=== PATIENT | female | born 1965 | race Two or more races ===

== ENCOUNTER 2016-11-24 13:55 | Inpatient (IN) | payer MEDICAID ==
[~2016-11-24] VITALS: Ht 157.5 cm; Wt 74.4 kg
[2016-11-24 14:43] LABS: Basophils # (auto) 0 uL; Basophils % (auto) 0.3 % (0.0-2.0); DEFINITIVE VIEW TRANSMISSION; Eosinophils # (auto) 0.1 uL; Eosinophils % (auto) 1.1 % (0.0-7.0); Hematocrit 41.9 % (36.0-46.0); Hemoglobin 13.6 g/dL (12.2-16.2); Lymphocytes # (auto) 0.8 uL; Lymphocytes % (auto) 11.1 % (10.0-50.0); Mean Corpuscular Hemoglobin 25.2 pg (28.0-32.0); Mean Corpuscular Hgb Conc. 32.5 g/dL (32.0-36.0); Mean Corpuscular Volume 77.5 fL (80.0-100.0); Mean Platelet Volume 8.7 fL (7.4-10.4); Monocytes # (auto) 0.4 uL; Monocytes % (auto) 6.5 % (0.0-12.0); Neutrophils # (auto) 5.6 uL; Platelet Count (auto) 261 10^3/uL (140-450); White Blood Cell 6.9 10^3/uL (4.4-10.8)
[2016-11-24 15:10] LABS: Potassium 3.9 mmol/L (3.5-5.1)
[2016-11-24 15:14] LABS: BUN/Creatinine Ratio 13.2; Calcium 8.9 mg/dL (8.5-10.1)
[2016-11-24 15:17] LABS: Bilirubin, Total 0.4 mg/dL (0.2-1.0); Total Protein 8.6 g/dL (6.4-8.2)
[2016-11-24] MEDS ORDERED: ONDANSETRON HCL 4 MG/2 ML VIAL IV ONE (15:45)
[2016-11-24] MEDS ORDERED: HYDROmorphone HCL 2 MG/ML VL IV ONE (15:45)
[2016-11-24] MEDS ORDERED: cloNIDine HCL 0.1 MG TAB PO ONE (15:45)
[2016-11-24 16:31] LABS: Urine Bilirubin Negative (Negative); Urine Blood Negative /uL (Negative); Urine Color Yellow (Yellow); Urine Glucose Normal (Normal); Urine Mucus FEW (None Seen); Urine Nitrite Negative (Negative); Urine RBC 2 /hpf (0 - 4); Urine Squamous Epithelial Cell MOD /hpf (<5); Urine Urobilinogen Normal (Negative); Urine pH 5.5 (5.0-8.0)
[2016-11-24 16:32] LABS: Urine Ketone 1+ (Negative)
[2016-11-24] MEDS ORDERED: DILTIAZEM HCL 25 MG/5 ML VIAL IV ONE (17:00)
[2016-11-24] MEDS ORDERED: cefTRIAXone 1GM/50ML D5W 50 ML IV ONE (17:30)
[2016-11-24] MEDS ORDERED: HYDROcodone-ACET 5/325MG TAB PO PRN (17:45)
[2016-11-24] MEDS ORDERED: TEMAZEPAM 15 MG CAP PO PRN (17:45)
[2016-11-24] MEDS ORDERED: LABETALOL HCL 5 MG/ML 4ML SYRINGE IV PRN ×3 (17:45)
[2016-11-24] MEDS ORDERED: PROMETHAZINE HCL 25 MG/ML 1ML IV PRN (17:45)
[2016-11-24] MEDS ORDERED: LABETALOL HCL 5 MG/ML 4ML SYRINGE IV ONE (17:45)
[2016-11-24] MEDS ORDERED: NITROGLYCERIN 0.4 MG SL TAB SL PRN (17:45)
[2016-11-24] MEDS ORDERED: MORPHINE SULF INJ 2 MG/ML SYRINGE 1ML IV PRN (17:45)
[2016-11-24] MEDS ORDERED: LACTULOSE 20Gm/30ML SOLN PO PRN (17:45)
[2016-11-24] MEDS: NITROGLYCERIN 0.2MG/HR TOPICAL PATCH TD SCH (18:05)
[2016-11-24 18:41] LABS: Temperature: 21.9 C (20.0-25.0)
[2016-11-24] MEDS: MORPHINE SULF INJ 2 MG/ML SYRINGE 1ML IV PRN (18:42)
[2016-11-24] MEDS: ACETAMINOPHEN 500 MG TAB PO PRN (19:27)
[2016-11-24 20:25] VITALS: BP 154/104
[2016-11-24 20:58] LABS: INR 1.04 (0.9-1.15); Prothrombin Time 10.7 sec (9.37-12.3)
[2016-11-24 22:02] VITALS: BP 154/104
[2016-11-24] MEDS: SODIUM CHLOR 0.9% PF (SALINE LOCK) 10ML VIAL IV SCH (22:02)
[2016-11-24] MEDS: METOPROLOL TARTRATE 25 MG TAB PO SCH (22:03)
[2016-11-24] MEDS: ATORVASTATIN 20 MG TAB PO SCH (22:04)
[2016-11-25] MEDS: MORPHINE SULF INJ 2 MG/ML SYRINGE 1ML IV PRN ×5 (00:19→20:29)
[2016-11-25 05:19] VITALS: BP 127/84
[2016-11-25] MEDS: SODIUM CHLOR 0.9% PF (SALINE LOCK) 10ML VIAL IV SCH ×3 (05:29→22:09)
[2016-11-25 06:11] LABS: Cholesterol 226 mg/dL (<200); HDL Cholesterol 52 mg/dL (40-59); LDL Cholesterol 136 mg/dL (<100); Triglycerides 133 mg/dL (<150)
[2016-11-25] MEDS: ACETAMINOPHEN 500 MG TAB PO PRN (07:46)
[2016-11-25 09:00] VITALS: BP 139/68
[2016-11-25] MEDS: cefTRIAXone 1GM/50ML D5W 50 ML IV SCH (09:00)
[2016-11-25] MEDS: ENALAPRIL MALEATE 2.5 MG TAB PO SCH (09:33)
[2016-11-25] MEDS: METOPROLOL TARTRATE 25 MG TAB PO SCH ×2 (09:33→22:09)
[2016-11-25] MEDS: ASPirin 81 mg TAB PO SCH (09:34)
[2016-11-25] MEDS: NITROGLYCERIN 0.2MG/HR TOPICAL PATCH TD SCH (09:35)
[2016-11-25 13:00] VITALS: BP 143/93
[2016-11-25] MEDS ORDERED: LISI40TA PO (13:15)
[2016-11-25] MEDS: LORazepam 0.5 MG TAB PO PRN (13:54)
[2016-11-25] MEDS ORDERED: BUTALBITAL-ASPIRIN-CAFF(FioriNAL) CAP PO PRN (16:15)
[2016-11-25 16:42] VITALS: BP 133/81
[2016-11-25] MEDS: METHOCARBAMOL 500 MG TAB PO SCH ×2 (17:58→22:12)
[2016-11-25] MEDS: SODIUM CHLORIDE 0.9% 1,000 ML IV SCH (20:35)
[2016-11-25 22:00] VITALS: BP 140/84
[2016-11-25] MEDS: ATORVASTATIN 20 MG TAB PO SCH (22:10)
[2016-11-25] MEDS: METOCLOPRAMIDE HCL 10 MG TAB PO SCH (22:12)
[2016-11-25] MEDS: TOPIRAMATE 25 MG TAB PO SCH (22:13)
[2016-11-26 00:19] VITALS: BP 140/84
[2016-11-26] MEDS: ACETAMINOPHEN 500 MG TAB PO PRN (04:26)
[2016-11-26] MEDS: LORazepam 0.5 MG TAB PO PRN (04:26)
[2016-11-26 04:58] VITALS: BP 150/92
[2016-11-26] MEDS: SODIUM CHLORIDE 0.9% 1,000 ML IV SCH (05:15)
[2016-11-26] MEDS: SODIUM CHLOR 0.9% PF (SALINE LOCK) 10ML VIAL IV SCH ×2 (05:39→13:30)
[2016-11-26] MEDS: METOCLOPRAMIDE HCL 10 MG TAB PO SCH ×2 (05:40→13:43)
[2016-11-26] MEDS: METHOCARBAMOL 500 MG TAB PO SCH ×2 (05:41→12:09)
[2016-11-26 09:17] VITALS: BP 144/94
[2016-11-26] MEDS: METOPROLOL TARTRATE 25 MG TAB PO SCH (09:26)
[2016-11-26] MEDS: ENALAPRIL MALEATE 2.5 MG TAB PO SCH (09:27)
[2016-11-26] MEDS: ASPirin 81 mg TAB PO SCH (09:27)
[2016-11-26] MEDS: TOPIRAMATE 25 MG TAB PO SCH (09:27)
[2016-11-26] MEDS: NITROGLYCERIN 0.2MG/HR TOPICAL PATCH TD SCH (09:28)
[2016-11-26] MEDS: cefTRIAXone 1GM/50ML D5W 50 ML IV SCH (09:39)
[2016-11-26] MEDS ORDERED: DEXAMETHASONE INJECTION 10 MG in D5W 5% 50 ML IV SCH (10:00)
[2016-11-26] MEDS: MORPHINE SULF INJ 2 MG/ML SYRINGE 1ML IV PRN (10:02)
[2016-11-26 13:45] VITALS: BP 161/78
[2016-11-26 14:14] VITALS: BP 149/95
== END 2016-11-26 15:04 | disposition home or self-care (01) | DRG 203 ==
LOC: ER 14:02 → TELE 14:03 → TELE-CENTR 19:44 → CENTRAL 11-26 13:17 → TELE-CENTR 11-26 13:56
PROVIDERS: ADMIT Internal Medicine; ATTEND Internal Medicine
PROC: 5A09357 Assistance with Respiratory Ventilation, Less than 24 Consecutive Hours, Continuous Positive Airway Pressure (ICD-10-PCS; principal; 2016-11-25)
DX: R07.9 Chest pain, unspecified (principal); N39.0 Urinary tract infection, site not specified; I16.1 Hypertensive emergency; G43.909 Migraine, unspecified, not intractable, without status migrainosus; I70.0 Atherosclerosis of aorta; I10 Essential (primary) hypertension; Z90.721 Acquired absence of ovaries, unilateral; Z98.890 Other specified postprocedural states; Z82.49 Family history of ischemic heart disease and other diseases of the circulatory system; Z88.1 Allergy status to other antibiotic agents; Z79.899 Other long term (current) drug therapy; Z86.011 Personal history of benign neoplasm of the brain
CPT/HCPCS: 36415; 70450; 70551; 71020; 80053; 80061; 81001; 82550; 82607; 82746; 84443; 84484; 85025; 85049; 85379; 85610; 85652; 86141; 87086; 93005; 93971; 94660; 96374; 96375; 99291; G0434; J0696; J1100; J2405; J3490; J7060

== ENCOUNTER 2019-05-07 17:38 | Inpatient (IN) | payer MEDICAID | END 2019-05-10 14:00 | disposition home or self-care (01) | LOC: ER 17:38 → OVERFLOW 17:39 → TELE 21:28 → TELE-WESTW 22:58 | DX: I12.9 Hypertensive chronic kidney disease with stage 1 through stage 4 chronic kidney disease, or unspecified chronic kidney disease (principal); N17.9 Acute kidney failure, unspecified; N18.3 Chronic kidney disease, stage 3 (moderate); I16.1 Hypertensive emergency; R07.9 Chest pain, unspecified; D49.7 Neoplasm of unspecified behavior of endocrine glands and other parts of nervous system ==

== ENCOUNTER 2019-11-08 10:47 | Emergency (ER) | payer MEDICAID ==
[~2019-11-08] VITALS: Ht 157.5 cm; Wt 72.6 kg
[~2019-11-08 10:47] MED LIST: AML5T PO; ASPI-404 PO; BACL10TA PO; CLO01T PO; FLUT1SPR5; GEMF600T7 PO; LISI-646 PO
[2019-11-08] MEDS ORDERED: hydrALAZINE HCL 20 MG/ML VL IV ONE (11:15)
[2019-11-08 11:36] LABS: Urine Bacteria FEW /hpf (None Seen); Urine Blood Negative /uL (Negative); Urine Hyaline Cast FEW /lpf (0 - 2); Urine Mucus FEW (None Seen); Urine Specific Gravity 1.017 (1.001-1.035); Urine WBC 1 /hpf (0 - 5)
[2019-11-08 11:50] LABS: Basophils # (auto) 0 uL; Eosinophils # (auto) 0.2 uL; Lymphocytes # (auto) 2.5 uL
[2019-11-08 11:53] LABS: Basophils % (auto) 0.5 % (0.0-2.0); Eosinophils % (auto) 2.3 % (0.0-7.0); Hematocrit 44.5 % (36.0-46.0); Hemoglobin 14.2 g/dL (12.2-16.2); Lymphocytes % (auto) 32.7 % (10.0-50.0); Mean Corpuscular Hemoglobin 25.1 pg (28.0-32.0); Mean Corpuscular Hgb Conc. 31.9 g/dL (32.0-36.0); Mean Corpuscular Volume 78.9 fL (80.0-100.0); Monocytes # (auto) 0.5 uL; Monocytes % (auto) 6.1 % (0.0-12.0); Neutrophils # (auto) 4.4 uL; Neutrophils % (auto) 58.4 % (37.0-80.0); Platelet Count (auto) 325 10^3/uL (140-450); Red Blood Cells 5.64 10^6/uL (4.0-5.20); Red Cell Distribution Width 14.8 % (11.8-14.3); White Blood Cell 7.6 10^3/uL (4.4-10.8)
[2019-11-08 11:57] LABS: Potassium 3.9 mmol/L (3.5-5.1)
[2019-11-08 12:04] LABS: BUN/Creatinine Ratio 20.4; Bilirubin, Total 0.3 mg/dL (0.2-1.0); Calcium 9.7 mg/dL (8.5-10.1); Total Protein 8.8 g/dL (6.4-8.2)
[2019-11-08 13:54] VITALS: BP 152/90
== END 2019-11-08 14:43 | disposition home or self-care (01) ==
LOC: ER 10:47
DX: I10 Essential (primary) hypertension (principal); D33.2 Benign neoplasm of brain, unspecified; E78.00 Pure hypercholesterolemia, unspecified
CPT/HCPCS: 36415; 70450; 80053; 81001; 85025; 93005

== ENCOUNTER 2020-01-23 18:48 | Emergency (ER) | payer MEDICAID ==
[~2020-01-23] VITALS: Ht 157.5 cm; Wt 70.3 kg
[2020-01-23] MEDS ORDERED: cloNIDine HCL 0.1 MG TAB PO ONE (19:15)
[2020-01-23 19:39] LABS: Eosinophils # (auto) 0.1 10 ^3/uL (0-0.8); Monocytes # (auto) 0.4 10 ^3/uL (0-1.3)
[2020-01-23 19:40] LABS: Basophils # (auto) 0 10 ^3/uL (0-0.2); Basophils % (auto) 0.6 % (0.0-2.0); Eosinophils % (auto) 1.9 % (0.0-7.0); Hematocrit 38.9 % (36.0-46.0); Hemoglobin 12.6 g/dL (12.2-16.2); Lymphocytes % (auto) 30.5 % (10.0-50.0); Mean Corpuscular Hemoglobin 25.4 pg (28.0-32.0); Mean Corpuscular Hgb Conc. 32.4 g/dL (32.0-36.0); Mean Corpuscular Volume 78.4 fL (80.0-100.0); Monocytes % (auto) 5.9 % (0.0-12.0); Neutrophils % (auto) 61.1 % (37.0-80.0); Nucleated Red Blood Cells % 0.1 %; Platelet Count (auto) 264 10^3/uL (140-450); Red Blood Cells 4.97 10^6/uL (4.0-5.20); White Blood Cell 6.5 10^3/uL (4.4-10.8)
[2020-01-23 19:56] LABS: Alanine Aminotransferase 18 U/L (13-56); Albumin 3.7 g/dL (3.4-5.0); Anion Gap 6 (5-15); Aspartate Aminotransferase 15 U/L (15-37); Blood Urea Nitrogen 22 mg/dL (7-18); Calcium 8.7 mg/dL (8.5-10.1); Carbon Dioxide 27 mmol/L (21-32); Chloride 108 mmol/L (98-107); Glucose 114 mg/dL (74-106); Potassium 4.1 mmol/L (3.5-5.1); Sodium 141 mmol/L (136-145)
[2020-01-23 20:01] LABS: Alkaline Phosphatase 98 U/L (45-117); BUN/Creatinine Ratio 15.3; Bilirubin, Total 0.2 mg/dL (0.2-1.0); GFR African American 48 mL/min; GFR Non-African American 40 mL/min
[2020-01-23] MEDS ORDERED: hydrALAZINE HCL 20 MG/ML VL IV ONE (22:15)
[2020-01-23] MEDS ORDERED: ONDANSETRON HCL 4 MG/2 ML VIAL IV ONE (22:15)
[2020-01-24 00:42] VITALS: BP 146/88
== END 2020-01-24 00:37 | disposition home or self-care (01) ==
LOC: ER 18:48
DX: I16.0 Hypertensive urgency (principal); I10 Essential (primary) hypertension; R51 Headache; E78.5 Hyperlipidemia, unspecified; Z90.710 Acquired absence of both cervix and uterus; Z87.820 Personal history of traumatic brain injury; Z88.1 Allergy status to other antibiotic agents; Z79.899 Other long term (current) drug therapy
CPT/HCPCS: 36415; 80053; 84484; 85025; 93005; 96374; 96375; 99284; J0360; J2405

== ENCOUNTER 2020-05-06 13:48 | Inpatient (IN) | payer MEDICAID ==
[~2020-05-06] VITALS: Ht 157.5 cm; Wt 73.0 kg
[2020-05-06] MEDS ORDERED: cloNIDine HCL 0.1 MG TAB PO ONE (14:15)
[2020-05-06 14:56] LABS: Eosinophils # (auto) 0.1 10 ^3/uL (0-0.8); Monocytes # (auto) 0.3 10 ^3/uL (0-1.3); Monocytes % (auto) 4.9 % (0.0-12.0); Neutrophils # (auto) 4.6 10 ^3/uL (1.6-8.6); White Blood Cell 6.5 10^3/uL (4.4-10.8)
[2020-05-06 15:00] LABS: Basophils # (auto) 0.1 10 ^3/uL (0-0.2); Basophils % (auto) 0.9 % (0.0-2.0); Eosinophils % (auto) 1.3 % (0.0-7.0); Hematocrit 40.4 % (36.0-46.0); Hemoglobin 13.1 g/dL (12.2-16.2); Lymphocytes # (auto) 1.4 10 ^3/uL (0.4-5.4); Lymphocytes % (auto) 21.8 % (10.0-50.0); Mean Corpuscular Hemoglobin 25.3 pg (28.0-32.0); Mean Corpuscular Hgb Conc. 32.6 g/dL (32.0-36.0); Mean Corpuscular Volume 77.8 fL (80.0-100.0); Neutrophils % (auto) 71.1 % (37.0-80.0); Nucleated Red Blood Cells % 0.1 %; Platelet Count (auto) 294 10^3/uL (140-450); Red Blood Cells 5.19 10^6/uL (4.0-5.20); Red Cell Distribution Width 15.1 % (11.8-14.3)
[2020-05-06] MEDS ORDERED: ASPirin 81 mg TAB PO ONE (15:00)
[2020-05-06] MEDS ORDERED: ONDANSETRON HCL 4 MG/2 ML VIAL IV ONE (15:00)
[2020-05-06] MEDS ORDERED: ACETAMINOPHEN 325 MG TAB PO ONE (15:00)
[2020-05-06 15:06] LABS: Albumin 3.6 g/dL (3.4-5.0); Anion Gap 8 (5-15); BUN/Creatinine Ratio 16.7; Blood Urea Nitrogen 22 mg/dL (7-18); Carbon Dioxide 24 mmol/L (21-32); Chloride 107 mmol/L (98-107); GFR African American 54 mL/min; GFR Non-African American 44 mL/min; Glucose 111 mg/dL (74-106); Potassium 3.7 mmol/L (3.5-5.1); Sodium 139 mmol/L (136-145)
[2020-05-06 15:08] LABS: Alanine Aminotransferase 18 U/L (13-56); Alkaline Phosphatase 102 U/L (45-117); Aspartate Aminotransferase 14 U/L (15-37); Bilirubin, Total 0.3 mg/dL (0.2-1.0); Total Protein 8.1 g/dL (6.4-8.2)
[2020-05-06 15:53] LABS: INR 0.97 (0.9-1.15); Partial Thromboplastin Time 30.2 sec (23.64-32.05)
[2020-05-06] MEDS ORDERED: FLUTICASONE PROP NASAL SPR 0.05 % (50MCG) 16GM PRN (18:45)
[2020-05-06] MEDS ORDERED: LACTATED RINGER'S 1,000 ML IV ONE (18:45)
[2020-05-06] MEDS ORDERED: BACLOFEN 10 MG TAB PO PRN (18:45)
[2020-05-06] MEDS ORDERED: cloNIDine HCL 0.1 MG TAB PO PRN (18:45)
[2020-05-06] MEDS ORDERED: MORPHINE SULF INJ 2 MG/ML SYRINGE 1ML IV PRN (18:45)
[2020-05-06] MEDS ORDERED: NITROGLYCERIN 0.4 MG SL TAB SL PRN ×2 (18:45→23:45)
[2020-05-06] MEDS ORDERED: ALUM & MAG HYDROX-SIMETH LIQ(MAALOX) 30 ML PO PRN (18:45)
[2020-05-06 20:05] LABS: Cholesterol 279 mg/dL (< 200); Triglycerides 328 mg/dL (< 150)
[2020-05-06 20:07] LABS: HDL Cholesterol 42 mg/dL (40-59); LDL Cholesterol 162 mg/dL (< 100)
[2020-05-06] MEDS: SOD CHL 0.45% 1,000 ML IV SCH (20:53)
[2020-05-06 22:20] VITALS: BP 154/98
[2020-05-06] MEDS: GEMFIBROZIL 600 MG TAB PO SCH (23:04)
[2020-05-06] MEDS: HYDROcodone-ACET 5/325MG TAB PO PRN (23:51)
[2020-05-06] MEDS: LORazepam 0.5 MG TAB PO PRN (23:52)
[2020-05-07 05:00] VITALS: BP 148/86
[2020-05-07 06:10] LABS: Basophils # (auto) 0 10 ^3/uL (0-0.2); Eosinophils # (auto) 0.1 10 ^3/uL (0-0.8); Hematocrit 36.1 % (36.0-46.0); Hemoglobin 11.6 g/dL (12.2-16.2); Nucleated Red Blood Cells % 0.1 %; White Blood Cell 4.7 10^3/uL (4.4-10.8)
[2020-05-07 06:13] LABS: Basophils % (auto) 0.8 % (0.0-2.0); Eosinophils % (auto) 2.8 % (0.0-7.0); Lymphocytes % (auto) 42.6 % (10.0-50.0); Mean Corpuscular Hemoglobin 25.3 pg (28.0-32.0); Mean Corpuscular Hgb Conc. 32.3 g/dL (32.0-36.0); Mean Corpuscular Volume 78.5 fL (80.0-100.0); Monocytes # (auto) 0.4 10 ^3/uL (0-1.3); Monocytes % (auto) 9.3 % (0.0-12.0); Neutrophils # (auto) 2.1 10 ^3/uL (1.6-8.6); Neutrophils % (auto) 44.5 % (37.0-80.0); Platelet Count (auto) 255 10^3/uL (140-450); Red Blood Cells 4.59 10^6/uL (4.0-5.20); Red Cell Distribution Width 15.5 % (11.8-14.3)
[2020-05-07 06:25] LABS: INR 0.99 (0.9-1.15); Partial Thromboplastin Time 29.6 sec (23.64-32.05)
[2020-05-07 06:30] LABS: Albumin 3.1 g/dL (3.4-5.0); Calcium 8.8 mg/dL (8.5-10.1); Magnesium 2.7 mg/dL (1.6-2.6); Potassium 3.9 mmol/L (3.5-5.1)
[2020-05-07 06:35] LABS: BUN/Creatinine Ratio 18.5; Bilirubin, Total 0.3 mg/dL (0.2-1.0); Phosphorus 4.5 mg/dL (2.5-4.90)
[2020-05-07 09:00] VITALS: BP 139/79
[2020-05-07] MEDS ORDERED: ENOXAPARIN SOD 40 MG/0.4 ML SYRINGE SC SCH (10:00)
[2020-05-07] MEDS ORDERED: CLOPIDOGREL BISULFATE 75 MG TAB PO SCH (10:00)
[2020-05-07] MEDS ORDERED: LISINOPRIL 20 MG TAB PO SCH (10:00)
[2020-05-07] MEDS ORDERED: amLODIPine BESYLATE 5 MG TAB PO SCH (10:00)
[2020-05-07] MEDS: ASPirin-EC 81 mg tab PO SCH (10:24)
[2020-05-07] MEDS: GEMFIBROZIL 600 MG TAB PO SCH ×2 (10:24→22:38)
[2020-05-07] MEDS ORDERED: ISOSORBIDE MONONITRATE ER 60 MG TAB PO ONE (11:00)
[2020-05-07] MEDS ORDERED: METOPROLOL TARTRATE 50 MG TAB PO ONE (11:00)
[2020-05-07] MEDS: SOD CHL 0.45% 1,000 ML IV SCH (11:16)
[2020-05-07] MEDS: HYDROcodone-ACET 5/325MG TAB PO PRN ×2 (11:39→20:22)
[2020-05-07 13:00] VITALS: BP 166/100
[2020-05-07] MEDS ORDERED: amLODIPine BESYLATE 5 MG TAB PO ONE (13:15)
[2020-05-07] MEDS: ONDANSETRON HCL 4 MG/2 ML VIAL IV PRN ×2 (14:46→20:22)
[2020-05-07] MEDS ORDERED: VERAPAMIL HCL 120 mg ER tab PO ONE (15:45)
[2020-05-07 16:49] VITALS: BP 142/88
[2020-05-07 21:50] VITALS: BP 156/82
[2020-05-07] MEDS: VERAPAMIL HCL 40 MG TAB PO SCH (22:00)
[2020-05-07] MEDS: METOPROLOL TARTRATE 50 MG TAB PO SCH (22:38)
--- NOTE | 2020-05-07 22:59 | NUR ---
ALONDRA CARDIOPULMONARY TECHNICIAN NOTIFIED BECAUSE NEW MEDICATION FOR VERAPAMIL 80MG IS UNAVAILABLE. PT GIVEN LOPRESSOR AND LOPID ORDERED.
--- NOTE | 2020-05-08 | NUR ---
PT INFORMED RN THAT SHE HAS GOOGLED VERAPAMIL AND WILL NOT BE TAKING IT BECAUSE OF ITS SIDE EFFECTS.
[2020-05-08] MEDS: VERAPAMIL HCL 40 MG TAB PO SCH ×3 (00:09→22:00)
[2020-05-08] MEDS: HYDROcodone-ACET 5/325MG TAB PO PRN (00:40)
[2020-05-08] MEDS: LORazepam 0.5 MG TAB PO PRN (00:40)
[2020-05-08] MEDS: MORPHINE SULF INJ 2 MG/ML SYRINGE 1ML IV PRN ×3 (02:11→21:39)
[2020-05-08 05:00] VITALS: BP 128/71
[2020-05-08 07:17] LABS: Eosinophils # (auto) 0.2 10 ^3/uL (0-0.8); Lymphocytes # (auto) 2.2 10 ^3/uL (0.4-5.4); Monocytes # (auto) 0.5 10 ^3/uL (0-1.3); Platelet Count (auto) 260 10^3/uL (140-450); Red Cell Distribution Width 15.6 % (11.8-14.3)
[2020-05-08 07:24] LABS: Basophils # (auto) 0 10 ^3/uL (0-0.2); Basophils % (auto) 0.6 % (0.0-2.0); Eosinophils % (auto) 2.3 % (0.0-7.0); Hematocrit 35.4 % (36.0-46.0); Hemoglobin 11.3 g/dL (12.2-16.2); Lymphocytes % (auto) 33.4 % (10.0-50.0); Mean Corpuscular Hemoglobin 25.4 pg (28.0-32.0); Mean Corpuscular Volume 79.4 fL (80.0-100.0); Monocytes % (auto) 7.4 % (0.0-12.0); Neutrophils # (auto) 3.8 10 ^3/uL (1.6-8.6); Neutrophils % (auto) 56.3 % (37.0-80.0); Nucleated Red Blood Cells % 0.1 %; Red Blood Cells 4.46 10^6/uL (4.0-5.20); White Blood Cell 6.7 10^3/uL (4.4-10.8)
[2020-05-08 07:35] LABS: Potassium 4.1 mmol/L (3.5-5.1)
[2020-05-08 07:40] LABS: BUN/Creatinine Ratio 23.4; Calcium 8.5 mg/dL (8.5-10.1)
[2020-05-08] MEDS: ASPirin-EC 81 mg tab PO SCH (09:00)
[2020-05-08] MEDS: METOPROLOL TARTRATE 50 MG TAB PO SCH ×2 (09:01→22:04)
[2020-05-08] MEDS: GEMFIBROZIL 600 MG TAB PO SCH ×2 (09:01→22:04)
[2020-05-08] MEDS: ISOSORBIDE MONONITRATE ER 60 MG TAB PO SCH (09:02)
[2020-05-08 09:07] VITALS: BP 151/88
[2020-05-08 09:13] LABS: Urine Bacteria FEW /hpf (None Seen); Urine Blood Negative /uL (Negative); Urine Specific Gravity 1.019 (1.001-1.035); Urine WBC 37 /hpf (0 - 5)
[2020-05-08] MEDS ORDERED: VERAPAMIL HCL 120 mg ER tab PO SCH (10:00)
[2020-05-08] MEDS ORDERED: amLODIPine BESYLATE 5 MG TAB PO SCH (10:00)
[2020-05-08] MEDS: LIDOCAINE 5% TOPICAL PATCH TOP SCH (11:15)
[2020-05-08] MEDS: DOCUSATE SOD 100 MG CAP PO PRN (11:15)
[2020-05-08] MEDS: ONDANSETRON HCL 4 MG/2 ML VIAL IV PRN ×2 (11:15→21:28)
[2020-05-08 13:00] VITALS: BP 164/93
[2020-05-08] MEDS: SPIRONOLACTONE 25 MG TAB PO SCH (13:25)
[2020-05-08] MEDS: dilTIAZem HCL 60 MG TAB PO SCH ×2 (13:28→22:03)
[2020-05-08 17:25] VITALS: BP 167/83
[2020-05-08] MEDS: TERAZOSIN HCL 5 MG CAP PO SCH (22:04)
[2020-05-08] MEDS: PANTOPRAZOLE 40 MG TAB PO SCH (22:04)
[2020-05-08 22:05] VITALS: BP 161/98
[2020-05-09] MEDS: HYDROcodone-ACET 5/325MG TAB PO PRN ×3 (00:02→21:40)
--- NOTE | 2020-05-09 01:55 | NUR ---
REASSESSMENT The patient reported that she is no longer experiencing a headache. Patient's blood pressure is 108/76. Will continue to monitor the patient's blood pressure. Patient still reports feeling nauseous. Will treat with PRN anti nausea medication.
[2020-05-09] MEDS: ONDANSETRON HCL 4 MG/2 ML VIAL IV PRN ×2 (01:57→21:35)
--- NOTE | 2020-05-09 02:27 | NUR ---
NAUSEA ASSESSMENT The patient's is currently resting in bed. Reports that she is no longer experiencing the nauseous. Will continue to monitor the patient's status.
[2020-05-09 05:09] VITALS: BP 92/55
[2020-05-09 05:41] LABS: Basophils # (auto) 0 10 ^3/uL (0-0.2); Basophils % (auto) 0.5 % (0.0-2.0); Eosinophils # (auto) 0.1 10 ^3/uL (0-0.8); Eosinophils % (auto) 2.1 % (0.0-7.0); White Blood Cell 6.6 10^3/uL (4.4-10.8)
[2020-05-09 05:44] LABS: Hematocrit 36.4 % (36.0-46.0); Hemoglobin 11.6 g/dL (12.2-16.2); Lymphocytes # (auto) 1.8 10 ^3/uL (0.4-5.4); Lymphocytes % (auto) 27.8 % (10.0-50.0); Mean Corpuscular Hemoglobin 25.3 pg (28.0-32.0); Mean Corpuscular Hgb Conc. 31.8 g/dL (32.0-36.0); Mean Corpuscular Volume 79.4 fL (80.0-100.0); Monocytes # (auto) 0.5 10 ^3/uL (0-1.3); Monocytes % (auto) 6.9 % (0.0-12.0); Neutrophils # (auto) 4.2 10 ^3/uL (1.6-8.6); Neutrophils % (auto) 62.7 % (37.0-80.0); Nucleated Red Blood Cells % 0.1 %; Platelet Count (auto) 267 10^3/uL (140-450); Red Blood Cells 4.58 10^6/uL (4.0-5.20); Red Cell Distribution Width 15.4 % (11.8-14.3)
[2020-05-09] MEDS: VERAPAMIL HCL 40 MG TAB PO SCH ×3 (06:00→22:00)
[2020-05-09] MEDS: dilTIAZem HCL 60 MG TAB PO SCH ×2 (06:00→14:04)
[2020-05-09 06:10] LABS: BUN/Creatinine Ratio 17.9; Calcium 8.5 mg/dL (8.5-10.1); Potassium 4.7 mmol/L (3.5-5.1)
--- NOTE | 2020-05-09 07:30 | NUR ---
RECEIVED REPORT FROM NIGHT NURSE. PATIENT RESTING IN BED, NO DISTRESS NOTED. PATIENT NPO FOR PROCEDURE. WILL CONTINUE TO MONITOR.
[2020-05-09 09:00] VITALS: BP 125/72
[2020-05-09] MEDS: METOPROLOL TARTRATE 50 MG TAB PO SCH ×2 (10:00→21:40)
[2020-05-09] MEDS: PANTOPRAZOLE 40 MG TAB PO SCH ×2 (10:00→21:37)
[2020-05-09] MEDS: SPIRONOLACTONE 25 MG TAB PO SCH (10:00)
[2020-05-09] MEDS: ISOSORBIDE MONONITRATE ER 60 MG TAB PO SCH (10:00)
[2020-05-09] MEDS: ASPirin-EC 81 mg tab PO SCH (10:00)
[2020-05-09] MEDS: GEMFIBROZIL 600 MG TAB PO SCH ×2 (10:00→21:37)
[2020-05-09] MEDS: LIDOCAINE 5% TOPICAL PATCH TOP SCH (10:00)
[2020-05-09] MEDS ORDERED: SODIUM CHLORIDE LOCK 10 ML ONE (10:08)
[2020-05-09] MEDS ORDERED: LIDOCAINE VISCOUS 2% 15ML UD ONE (10:09)
[2020-05-09] MEDS ORDERED: diphenhdrAMINE HCL 50 MG/1 ML VL ONE (10:09)
--- NOTE | 2020-05-09 10:10 | NUR ---
PATIENT BROUGHT DOWN TO OR FOR PROCEDURE.
[2020-05-09] MEDS: MIDAZOLAM HCL 5 MG/ML-1ML VIAL ONE ×2 (10:24→10:27)
[2020-05-09] MEDS: fentaNYL CITRATE 100 MCG/2 ML VL ONE ×2 (10:24→10:27)
--- NOTE | 2020-05-09 11:10 | NUR ---
PATIENT BACK FROM PROCEDURE. NO DISTRESS NOTED. VITALS STABLE. WILL CONTINUE TO MONITOR.
[2020-05-09 13:00] VITALS: BP 133/84
[2020-05-09 17:00] VITALS: BP 121/72
[2020-05-09] MEDS ORDERED: ONDANSETRON HCL 4 MG/2 ML VIAL ONE (21:13)
[2020-05-09] MEDS: TERAZOSIN HCL 5 MG CAP PO SCH (21:38)
--- NOTE | 2020-05-09 21:40 | NUR ---
PAIN ASSESSMENT The patient reports having a headache which she rates as 6/10. Patient's blood pressure is 166/87. Will treat with PRN pain medication.
--- NOTE | 2020-05-09 22:00 | NUR ---
TEMPERATURE OF 100.2 F Patient's temperature is 100.2 F. Patient reports feeling chills. Will initiate cool measures and will reevaluate.
[2020-05-09 22:39] VITALS: BP 166/87
--- NOTE | 2020-05-09 22:40 | NUR ---
PAIN REEVALUATION The patient's headache is currently a 3/10. Patient is resting comfortably in bed. Will continue to monitor the patient.
--- NOTE | 2020-05-09 23:15 | NUR ---
TEMPERATURE REEVALUATION The patient's temperature is 99.5 F after initiating cooling measure. Will continue to monitor the patient's temperature.
[2020-05-10] MEDS: HYDROcodone-ACET 5/325MG TAB PO PRN ×2 (03:30→21:57)
--- NOTE | 2020-05-10 03:30 | NUR ---
ASSESSMENT The patient reports having another headache which she rates as 6/10. The patient's blood pressure is 132/75. Will treat with PRN pain medication. Patient temperature is 100.2 F. Will initiate cool measures.
--- NOTE | 2020-05-10 05:45 | NUR ---
REASSESSMENT The patient's temperature is 99.4 F. Will continue to monitor the patient's status.
[2020-05-10 05:50] VITALS: BP 123/72
[2020-05-10] MEDS: VERAPAMIL HCL 40 MG TAB PO SCH ×3 (06:00→21:20)
[2020-05-10 06:31] LABS: Basophils # (auto) 0 10 ^3/uL (0-0.2); Monocytes # (auto) 0.4 10 ^3/uL (0-1.3)
[2020-05-10 06:34] LABS: Basophils % (auto) 0.4 % (0.0-2.0); Eosinophils # (auto) 0.2 10 ^3/uL (0-0.8); Eosinophils % (auto) 2.4 % (0.0-7.0); Hematocrit 35.9 % (36.0-46.0); Hemoglobin 11.5 g/dL (12.2-16.2); Lymphocytes # (auto) 2.1 10 ^3/uL (0.4-5.4); Lymphocytes % (auto) 33.2 % (10.0-50.0); Mean Corpuscular Hemoglobin 25.4 pg (28.0-32.0); Mean Corpuscular Hgb Conc. 32.2 g/dL (32.0-36.0); Monocytes % (auto) 6.8 % (0.0-12.0); Neutrophils # (auto) 3.6 10 ^3/uL (1.6-8.6); Neutrophils % (auto) 57.2 % (37.0-80.0); Platelet Count (auto) 278 10^3/uL (140-450); Red Blood Cells 4.54 10^6/uL (4.0-5.20); Red Cell Distribution Width 15.4 % (11.8-14.3); White Blood Cell 6.2 10^3/uL (4.4-10.8)
[2020-05-10 06:55] LABS: BUN/Creatinine Ratio 18.4; Calcium 8.7 mg/dL (8.5-10.1)
[2020-05-10 07:10] LABS: Potassium 4.9 mmol/L (3.5-5.1)
--- NOTE | 2020-05-10 07:30 | NUR ---
Opening Shift Note RECEIVED REPORT FORM NOC RN. Assumed care of patient, awake and alert. PATIENT ON OXYGEN AT 2 LPM VIA NASAL CANNULA WITH no S/S of distress/SOB or pain. BED IN LOWEST, LOCKED POSITION WITH SIDERAILS UP x2 AND CALL LIGHT WITHIN REACH. Instructed on POC and to call for assist PRN, will continue to monitor for changes Q1hr and PRN.
[2020-05-10] MEDS: METOPROLOL TARTRATE 50 MG TAB PO SCH (10:14)
[2020-05-10] MEDS: LIDOCAINE 5% TOPICAL PATCH TOP SCH (10:14)
[2020-05-10] MEDS: ASPirin-EC 81 mg tab PO SCH (10:14)
[2020-05-10] MEDS: PANTOPRAZOLE 40 MG TAB PO SCH ×2 (10:14→21:21)
[2020-05-10] MEDS: GEMFIBROZIL 600 MG TAB PO SCH ×2 (10:14→21:18)
[2020-05-10] MEDS: SPIRONOLACTONE 25 MG TAB PO SCH (10:14)
[2020-05-10] MEDS: ISOSORBIDE MONONITRATE ER 60 MG TAB PO SCH (10:15)
[2020-05-10] MEDS: ONDANSETRON HCL 4 MG/2 ML VIAL IV PRN ×2 (12:20→21:15)
[2020-05-10 13:00] VITALS: BP 137/57
--- NOTE | 2020-05-10 13:01 | NUR ---
URINE COLLECTION CONTAINER GIVEN TO PATIENT.
[2020-05-10] MEDS: DOCUSATE SOD 100 MG CAP PO PRN (13:30)
[2020-05-10] MEDS ORDERED: ACETAMINOPHEN 325 MG TAB PO PRN ×2 (13:30→14:30)
[2020-05-10 17:09] VITALS: BP 129/70
--- NOTE | 2020-05-10 19:20 | NUR ---
Opening Shift Note Assumed care of patient, awake and alert. No S/S of distress/SOB. Patient states that she is currently having a headache which she rates as 4/10. Bed is locked in lowest position with call light within reach. Instructed on POC and to call for assist PRN, will continue to monitor for changes Q1hr and PRN.
[2020-05-10] MEDS: TERAZOSIN HCL 5 MG CAP PO SCH (21:20)
[2020-05-10] MEDS: METOPROLOL TARTRATE 25 MG TAB PO SCH (21:20)
--- NOTE | 2020-05-11 01:35 | NUR ---
ANXIETY The patient reports feeling anxious after having a dream. Patient is requesting medication. Will treat with PRN Ativan.
[2020-05-11] MEDS: LORazepam 0.5 MG TAB PO PRN (01:42)
[2020-05-11 05:40] LABS: Basophils # (auto) 0 10 ^3/uL (0-0.2); Basophils % (auto) 0.7 % (0.0-2.0); Eosinophils # (auto) 0.1 10 ^3/uL (0-0.8); Hemoglobin 11.1 g/dL (12.2-16.2); Monocytes # (auto) 0.4 10 ^3/uL (0-1.3); Neutrophils # (auto) 2.6 10 ^3/uL (1.6-8.6); White Blood Cell 4.9 10^3/uL (4.4-10.8)
[2020-05-11 05:41] LABS: Eosinophils % (auto) 1.9 % (0.0-7.0); Hematocrit 34.5 % (36.0-46.0); Lymphocytes # (auto) 1.7 10 ^3/uL (0.4-5.4); Lymphocytes % (auto) 35.5 % (10.0-50.0); Mean Corpuscular Hemoglobin 25.4 pg (28.0-32.0); Mean Corpuscular Hgb Conc. 32.2 g/dL (32.0-36.0); Monocytes % (auto) 8.6 % (0.0-12.0); Neutrophils % (auto) 53.3 % (37.0-80.0); Platelet Count (auto) 269 10^3/uL (140-450); Red Blood Cells 4.38 10^6/uL (4.0-5.20); Red Cell Distribution Width 15.2 % (11.8-14.3)
[2020-05-11 06:00] LABS: Potassium 4.7 mmol/L (3.5-5.1)
[2020-05-11] MEDS: VERAPAMIL HCL 40 MG TAB PO SCH (06:00)
[2020-05-11 06:07] LABS: BUN/Creatinine Ratio 18.6; Calcium 8.8 mg/dL (8.5-10.1)
--- NOTE | 2020-05-11 07:30 | NUR ---
RECEIVED REPORT FROM NIGHT NURSE. PATIENT RESTING IN BED, NO DISTRESS NOTED. WILL CONTINUE TO MONITOR.
[2020-05-11 09:00] VITALS: BP 151/94
[2020-05-11] MEDS: ONDANSETRON HCL 4 MG/2 ML VIAL IV PRN (10:24)
[2020-05-11] MEDS: HYDROcodone-ACET 5/325MG TAB PO PRN (10:29)
[2020-05-11] MEDS: SPIRONOLACTONE 25 MG TAB PO SCH (10:29)
[2020-05-11] MEDS: ASPirin-EC 81 mg tab PO SCH (10:29)
[2020-05-11] MEDS: ISOSORBIDE MONONITRATE ER 60 MG TAB PO SCH (10:30)
[2020-05-11] MEDS: METOPROLOL TARTRATE 25 MG TAB PO SCH (10:30)
[2020-05-11] MEDS: GEMFIBROZIL 600 MG TAB PO SCH (10:31)
[2020-05-11] MEDS: PANTOPRAZOLE 40 MG TAB PO SCH (10:31)
[2020-05-11] MEDS: LIDOCAINE 5% TOPICAL PATCH TOP SCH (11:15)
[2020-05-11 13:00] VITALS: BP 147/94
--- NOTE | 2020-05-11 13:10 | NUR ---
24 HR URINE COLLECTION COMPLETED. SPECIMEN TAKEN TO LAB.
--- NOTE | 2020-05-11 16:31 | NUR ---
Discharge instructions given as ordered. Encourage to follow up with PMD as instructed. All questions and concerns addressed. Patient verbalized understanding. Medication reconciliation form completed and copy given to patient. IV removed with catheter intact, pressure dressing applied. Telemetry unit returned to ICU. Patient taken to vehicle via wheelchair with all personal belongings, accompanied by staff member. No distress noted at time of departure.
== END 2020-05-11 16:36 | disposition home or self-care (01) | DRG 199 ==
LOC: ER 13:48 → TELE 13:49 → TELE-WESTW 22:20
PROVIDERS: ADMIT Hospitalist; ATTEND Internal Medicine
PROC: 0DJ08ZZ Inspection of Upper Intestinal Tract, Via Natural or Artificial Opening Endoscopic (ICD-10-PCS; principal; 2020-05-09 10:18)
DX: I16.1 Hypertensive emergency (principal); N17.0 Acute kidney failure with tubular necrosis; K31.84 Gastroparesis; I42.2 Other hypertrophic cardiomyopathy; I50.32 Chronic diastolic (congestive) heart failure; I13.0 Hypertensive heart and chronic kidney disease with heart failure and stage 1 through stage 4 chronic kidney disease, or unspecified chronic kidney disease; N18.3 Chronic kidney disease, stage 3 (moderate); G47.33 Obstructive sleep apnea (adult) (pediatric); E78.5 Hyperlipidemia, unspecified; M19.90 Unspecified osteoarthritis, unspecified site; F41.9 Anxiety disorder, unspecified; E66.9 Obesity, unspecified; G89.29 Other chronic pain; M54.2 Cervicalgia; J44.9 Chronic obstructive pulmonary disease, unspecified; E03.9 Hypothyroidism, unspecified; R07.89 Other chest pain; K29.70 Gastritis, unspecified, without bleeding; E78.00 Pure hypercholesterolemia, unspecified; Z87.891 Personal history of nicotine dependence; Z86.011 Personal history of benign neoplasm of the brain; Z86.73 Personal history of transient ischemic attack (TIA), and cerebral infarction without residual deficits; Z90.710 Acquired absence of both cervix and uterus; Z79.82 Long term (current) use of aspirin; Z82.49 Family history of ischemic heart disease and other diseases of the circulatory system; Z82.5 Family history of asthma and other chronic lower respiratory diseases; Z90.722 Acquired absence of ovaries, bilateral; Z88.8 Allergy status to other drugs, medicaments and biological substances; Z68.29 Body mass index [BMI] 29.0-29.9, adult; Z20.828 Contact with and (suspected) exposure to other viral communicable diseases
CPT/HCPCS: 36415; 70450; 71045; 76705; 80048; 80053; 80061; 81001; 82088; 82384; 82533; 82570; 83036; 83735; 83835; 83880; 84100; 84244; 84443; 84484; 85025; 85610; 85730; 87040; 87086; 93005; 93306; 93975; G0378; J2250; J2405

== ENCOUNTER 2020-09-22 09:16 | Inpatient (IN) | payer MEDICAID ==
[2020-09-22] VITALS (34 sets, daily range): BP systolic 99–153; BP diastolic 64–100
[~2020-09-22] VITALS: Ht 157.5 cm; Wt 70.7 kg
[~2020-09-22 09:16] MED LIST changes: -ASPI-404 PO; +ASPI-543 PO
[2020-09-22] MEDS ORDERED: ONDANSETRON HCL 4 MG/2 ML VIAL ONE (09:38)
[2020-09-22] MEDS ORDERED: ONDANSETRON HCL 4 MG/2 ML VIAL IV ONE ×2 (09:45→10:45)
[2020-09-22] MEDS ORDERED: cloNIDine HCL 0.1 MG TAB PO ONE (09:45)
[2020-09-22 10:25] LABS: Basophils # (auto) 0 10 ^3/uL (0-0.2); Eosinophils # (auto) 0 10 ^3/uL (0-0.8); Hematocrit 39.6 % (36.0-46.0); Hemoglobin 12.9 g/dL (12.2-16.2); Lymphocytes # (auto) 0.7 10 ^3/uL (0.4-5.4); Mean Corpuscular Hgb Conc. 32.7 g/dL (32.0-36.0); Monocytes # (auto) 0.5 10 ^3/uL (0-1.3); Neutrophils # (auto) 4.9 10 ^3/uL (1.6-8.6); Platelet Count (auto) 265 10^3/uL (140-450); White Blood Cell 6.2 10^3/uL (4.4-10.8)
[2020-09-22 10:26] LABS: Basophils % (auto) 0.5 % (0.0-2.0); Eosinophils % (auto) 0.5 % (0.0-7.0); Lymphocytes % (auto) 11.8 % (10.0-50.0); Mean Corpuscular Hemoglobin 25.4 pg (28.0-32.0); Mean Corpuscular Volume 77.7 fL (80.0-100.0); Monocytes % (auto) 8.5 % (0.0-12.0); Neutrophils % (auto) 78.7 % (37.0-80.0); Nucleated Red Blood Cells % 0.1 %; Red Cell Distribution Width 15.7 % (11.8-14.3)
[2020-09-22 10:39] LABS: Albumin 4.4 g/dL (3.4-5.0); Calcium 9.6 mg/dL (8.5-10.1); Potassium 3.8 mmol/L (3.5-5.1)
[2020-09-22 10:42] LABS: BUN/Creatinine Ratio 14.5; Bilirubin, Total 0.4 mg/dL (0.2-1.0); Total Protein 8.8 g/dL (6.4-8.2)
[2020-09-22] MEDS ORDERED: MORPHINE SULFATE 4 MG/ML SYR/VIAL IV ONE (10:45)
[2020-09-22] MEDS ORDERED: LABETALOL HCL 5 MG/ML 4ML SYRINGE IV ONE (11:15)
[2020-09-22] MEDS ORDERED: ASCORBIC ACID 500 MG TAB PO ONE (12:45)
[2020-09-22] MEDS ORDERED: ZINC SULFATE 220mg CAP or TAB PO ONE (12:45)
[2020-09-22] MEDS ORDERED: AZITHROMYCIN 500MG/ 250ML 250 ML IV ONE (12:45)
[2020-09-22] MEDS ORDERED: DOXYCYCLINE 100MG/250ML 250 ML IV ONE (13:00)
[2020-09-22] MEDS ORDERED: MORPHINE SULF INJ 2 MG/ML SYRINGE 1ML IV PRN (13:30)
[2020-09-22] MEDS ORDERED: NITROGLYCERIN 0.4 MG SL TAB SL PRN (13:30)
[2020-09-22] MEDS ORDERED: HYDROcodone-ACET 5/325MG TAB PO PRN (13:30)
[2020-09-22] MEDS ORDERED: DOCUSATE SOD 100 MG CAP PO PRN (13:30)
--- NOTE | 2020-09-22 13:35 | NUR ---
Admit to ICU from ER PRAKASH MARTINEZ Aadmitted to ICU via adrianna on pvc monitor. Patient transferred to bed, connected to ICU monitoring, weighed by bedscale, oriented to primary RN and unit NOTE: Pt being admitted to ICU for hypertensive crisis on a cardene gtt at 5mg. Pt has 20 G IV to Right AC, infusing cardene gtt. IV to left FA infusing NS/ABX. Both IV's patent and no s/s of infiltration or phlebitis. Pt COVID-19 positive in airborne isolation precautions. Pt having a headache with 7/10 pain associated with nausea. Will medicate appropriately. Full assessment done, see interventions. Bed locked and in lowest position. Call light within reach and patient verbalized understanding to call for assist. Addendum: 09/22/20 at 1721 by DAVIDSON SPEARS RN [id number] IS ACCURATE ADMIT TIME
[2020-09-22 15:04] LABS: Magnesium 2.2 mg/dL (1.6-2.6)
[2020-09-22 15:12] LABS: CRP High Sensitivity 1.14 mg/dL (< 0.3)
[2020-09-22] MEDS: ENOXAPARIN SOD 40 MG/0.4 ML SYRINGE SC SCH (15:20)
[2020-09-22] MEDS: ALBUTEROL SULF HFA 90MCG INH 200DOSE IN SCH ×2 (15:22→22:22)
[2020-09-22] MEDS: MORPHINE SULF INJ 2 MG/ML SYRINGE 1ML IV PRN ×2 (16:14→21:37)
[2020-09-22] MEDS: ONDANSETRON HCL 4 MG/2 ML VIAL IV PRN ×2 (16:14→21:37)
--- NOTE | 2020-09-22 19:00 | NUR ---
Opening Shift Note Assumed care of patient, awake and alert. No S/S of distress/SOB or pain. Instructed on POC and to call for assist PRN, will continue to monitor for changes Q1hr and PRN.
--- NOTE | 2020-09-22 19:07 | NUR ---
Report given to package line operator RNLinus. Titrating down on cardene gtt as pt's b/p is stabilizing; see IV spreadsheet for details
[2020-09-22] MEDS: GEMFIBROZIL 600 MG TAB PO SCH (21:36)
[2020-09-22] MEDS: DOXYCYCLINE 100 MG TAB/CAP PO SCH (21:37)
[2020-09-22] MEDS: METOPROLOL TARTRATE 50 MG TAB PO SCH (21:37)
[2020-09-23] VITALS (70 sets, daily range): BP systolic 94–155; BP diastolic 56–98
[2020-09-23 04:02] LABS: Basophils # (auto) 0 10 ^3/uL (0-0.2); Basophils % (auto) 0.6 % (0.0-2.0); Eosinophils # (auto) 0 10 ^3/uL (0-0.8); Eosinophils % (auto) 0.1 % (0.0-7.0); Hematocrit 37.7 % (36.0-46.0); Lymphocytes % (auto) 25.4 % (10.0-50.0); Mean Corpuscular Hgb Conc. 31.8 g/dL (32.0-36.0); Mean Corpuscular Volume 78.6 fL (80.0-100.0); Monocytes # (auto) 0.7 10 ^3/uL (0-1.3); Neutrophils # (auto) 2.4 10 ^3/uL (1.6-8.6); Neutrophils % (auto) 57.9 % (37.0-80.0); Platelet Count (auto) 220 10^3/uL (140-450); Red Cell Distribution Width 16.1 % (11.8-14.3); White Blood Cell 4.1 10^3/uL (4.4-10.8)
[2020-09-23 04:27] LABS: Potassium 4.1 mmol/L (3.5-5.1)
[2020-09-23 04:32] LABS: BUN/Creatinine Ratio 12.4; Calcium 8.6 mg/dL (8.5-10.1)
[2020-09-23 05:40] LABS: Urine Bacteria FEW /hpf (None Seen); Urine Blood Negative /uL (Negative); Urine Mucus FEW (None Seen); Urine Specific Gravity 1.007 (1.001-1.035); Urine WBC 20 /hpf (0 - 5)
[2020-09-23 05:54] LABS: Alcohol, Urine < 3.0 mg/dL (0-10); Amphetamine Screen, Urine NEGATIVE (NEGATIVE); Barbiturate Scree,Urine NEGATIVE (NEGATIVE); Benzodiazephine Screen, Urine NEGATIVE (NEGATIVE); Cannabinoid Screen, Urine NEGATIVE (NEGATIVE); Cocaine Screen, Urine NEGATIVE (NEGATIVE); Opiate Scree,Urine POSITIVE (NEGATIVE); Phencyclidine Screen, Urine NEGATIVE (NEGATIVE)
[2020-09-23] MEDS: ALBUTEROL SULF HFA 90MCG INH 200DOSE IN SCH ×3 (06:06→22:23)
[2020-09-23] MEDS: ONDANSETRON HCL 4 MG/2 ML VIAL IV PRN ×4 (07:30→23:31)
[2020-09-23] MEDS: MORPHINE SULF INJ 2 MG/ML SYRINGE 1ML IV PRN ×4 (08:35→23:31)
[2020-09-23] MEDS: ZINC SULFATE 220mg CAP or TAB PO SCH (09:32)
[2020-09-23] MEDS: ASPirin-EC 81 mg tab PO SCH (09:32)
[2020-09-23] MEDS: GEMFIBROZIL 600 MG TAB PO SCH ×2 (09:32→20:53)
[2020-09-23] MEDS: METOPROLOL TARTRATE 50 MG TAB PO SCH ×2 (09:33→21:31)
[2020-09-23] MEDS: FAMOTIDINE 20 MG TAB PO SCH (09:33)
[2020-09-23] MEDS: ENOXAPARIN SOD 40 MG/0.4 ML SYRINGE SC SCH (09:34)
[2020-09-23] MEDS: DOXYCYCLINE 100 MG TAB/CAP PO SCH ×2 (09:34→21:31)
[2020-09-23] MEDS: CHOLECALCIFEROL (VITD3) 2,000 UNIT CAP PO SCH (09:34)
[2020-09-23] MEDS: ASCORBIC ACID 1,000 MG TAB PO SCH (09:34)
[2020-09-23] MEDS ORDERED: amLODIPine BESYLATE 5 MG TAB PO SCH (10:00)
[2020-09-23] MEDS ORDERED: NIFEdipine ER 30 MG TAB PO ONE (11:30)
[2020-09-23] MEDS ORDERED: METOPROLOL TARTRATE 50 MG TAB PO ONE (11:30)
[2020-09-23] MEDS ORDERED: LIDOCAINE 5% TOPICAL PATCH TOP ONE (11:30)
[2020-09-23] MEDS ORDERED: guaiFENesin-DM 100/10mg/5ml SYR PO PRN (11:30)
[2020-09-23 11:50] LABS: Albumin 3.6 g/dL (3.4-5.0)
[2020-09-23 11:55] LABS: Bilirubin, Direct 0.1 mg/dL (0-0.2); Bilirubin, Total 0.3 mg/dL (0.2-1.0); Total Protein 7.7 g/dL (6.4-8.2)
--- NOTE | 2020-09-23 12:18 | NUR ---
MD Mcconnell at bedside. New orders received.
--- NOTE | 2020-09-23 12:22 | NUR ---
Pt refused to sign covid convalescent plasma consent. Stated she will sign Remdesevir consent. Will let MD know
--- NOTE | 2020-09-23 14:25 | NUR ---
per , pt can not receive remdesevir because of kidney function. Will advocate for conv. plasma
[2020-09-23] MEDS ORDERED: METO-158 PO (15:10)
[2020-09-23] MEDS ORDERED: NIFE1TAB30 PO (15:15)
[2020-09-23] MEDS ORDERED: TERA2CAP45 PO (15:15)
--- NOTE | 2020-09-23 18:00 | NUR ---
Nicardipine gtt titrated off at this time. Addendum: 09/23/20 at 1840 by DAVIDSON SPEARS RN gabbi/norma;
--- NOTE | 2020-09-23 19:07 | NUR ---
Report given to environmental communications specialist RN.
[2020-09-23] MEDS: ACETAMINOPHEN 500 MG TAB PO PRN (21:32)
--- NOTE | 2020-09-23 22:23 | NUR ---
Respiratory note: PT REFUSED NOC CPAP AT THIS TIME, STATES SHE SLEPT FINE WITHOUT IT THE PREVIOUS NIGHT. INFORMED PT TO HAVE RT PAGED IF NEEDED. PT REMAINS ON 2L NC. WILL CONTINUE TO MONITOR.
[2020-09-24] VITALS (21 sets, daily range): BP systolic 112–152; BP diastolic 62–95
[2020-09-24 04:23] LABS: Basophils # (auto) 0 10 ^3/uL (0-0.2); Eosinophils # (auto) 0 10 ^3/uL (0-0.8); Eosinophils % (auto) 0.1 % (0.0-7.0); Lymphocytes # (auto) 0.9 10 ^3/uL (0.4-5.4); Monocytes # (auto) 0.5 10 ^3/uL (0-1.3); Red Cell Distribution Width 15.8 % (11.8-14.3)
[2020-09-24 04:26] LABS: Basophils % (auto) 0.4 % (0.0-2.0); Hemoglobin 12.3 g/dL (12.2-16.2); Lymphocytes % (auto) 15.3 % (10.0-50.0); Mean Corpuscular Hemoglobin 25.3 pg (28.0-32.0); Mean Corpuscular Hgb Conc. 32.4 g/dL (32.0-36.0); Mean Corpuscular Volume 78.1 fL (80.0-100.0); Monocytes % (auto) 7.6 % (0.0-12.0); Neutrophils # (auto) 4.6 10 ^3/uL (1.6-8.6); Neutrophils % (auto) 76.6 % (37.0-80.0); Platelet Count (auto) 214 10^3/uL (140-450); Red Blood Cells 4.86 10^6/uL (4.0-5.20)
[2020-09-24 04:49] LABS: Potassium 4.2 mmol/L (3.5-5.1)
[2020-09-24 05:03] LABS: Albumin 3.7 g/dL (3.4-5.0); Bilirubin, Total 0.3 mg/dL (0.2-1.0); Calcium 9.1 mg/dL (8.5-10.1); Total Protein 7.5 g/dL (6.4-8.2)
[2020-09-24] MEDS: ONDANSETRON HCL 4 MG/2 ML VIAL IV PRN (05:17)
[2020-09-24] MEDS: MORPHINE SULF INJ 2 MG/ML SYRINGE 1ML IV PRN ×2 (05:17→10:57)
--- NOTE | 2020-09-24 05:18 | NUR ---
Elevated temp: Patient noted with an elevated temp of 100.4. Patient initially wanted an extra blanker d/t her feeling cold but RN informed her of elevated temp and patient understood. Patient refused tylenol at this time and states she will take it later after her PRN Zofran takes effect. RN will continue to monitor and assess patient.
[2020-09-24] MEDS: cloNIDine HCL 0.1 MG TAB PO PRN (06:11)
[2020-09-24] MEDS: ACETAMINOPHEN 500 MG TAB PO PRN (06:12)
--- NOTE | 2020-09-24 06:12 | NUR ---
Elevated temp: Patient continues with an elevated temp of 100.4. Patient finally agreed to take PRN Tylenol. Blankets removed from patient. RN will continue to monitor and assess patient.
[2020-09-24] MEDS: ALBUTEROL SULF HFA 90MCG INH 200DOSE IN SCH ×3 (06:35→21:11)
--- NOTE | 2020-09-24 07:30 | NUR ---
REPORT RECEIVED FROM BONE CHAR KILN TENDER NURSE. PATIENT RESTING IN BED AT THIS TIME. RESPIRATIONS EVEN AND UNLABORED. PATIENT AMBULATES AROUND ROOM. NO SIGNS OF ACUTE DISTRESS NOTED. CALL LIGHT IN REACH, BED IN LOW POSITION. WILL CONTINUE TO MONITOR.
--- NOTE | 2020-09-24 09:34 | NUR ---
SPOKE TO DR RASMUSSEN VIA TELEPHONE AND UPDATED ON PATIENT STATUS. MD MADE AWARE OF PAIN AND NAUSEA AND CURRENT MEDICATIONS NOT WORKING FOR PATIENT STATED BY PATIENT. PER MD WILL POSSIBLY DOWNGRADE PATIENT TODAY.
[2020-09-24] MEDS ORDERED: NIFEdipine ER 30 MG TAB PO SCH (10:00)
--- NOTE | 2020-09-24 11:08 | NUR ---
CONSENT REMDESIVIR PATIENT SIGNED REMDESIVIR CONSENT AFTER DISCUSSED WITH PATIENT. SENT TO PHARMACY.
[2020-09-24] MEDS: ZINC SULFATE 220mg CAP or TAB PO SCH (11:10)
[2020-09-24] MEDS: ASPirin-EC 81 mg tab PO SCH (11:10)
[2020-09-24] MEDS: METOPROLOL TARTRATE 50 MG TAB PO SCH (11:11)
[2020-09-24] MEDS: GEMFIBROZIL 600 MG TAB PO SCH ×2 (11:11→22:00)
[2020-09-24] MEDS: FAMOTIDINE 20 MG TAB PO SCH (11:12)
[2020-09-24] MEDS: CHOLECALCIFEROL (VITD3) 2,000 UNIT CAP PO SCH (11:13)
[2020-09-24] MEDS: DOXYCYCLINE 100 MG TAB/CAP PO SCH (11:13)
[2020-09-24] MEDS: ASCORBIC ACID 1,000 MG TAB PO SCH (11:13)
[2020-09-24] MEDS: ENOXAPARIN SOD 30 MG/0.3 ML SYRINGE SC SCH (11:15)
[2020-09-24] MEDS: LIDOCAINE 5% TOPICAL PATCH TOP SCH (11:16)
--- NOTE | 2020-09-24 11:56 | NUR ---
DR RASMSUSEN AT BEDSIDE TO ASSESS PATIENT AND DISCUSS PLAN OF CARE. PER MD PATIENT CAN GO TO TELEMETRY COVID FLOOR. MD ADJUSTED MEDICATIONS ORDERED.
[2020-09-24] MEDS: PROMETHAZINE HCL 25 MG/ML 1ML IV PRN (12:38)
[2020-09-24] MEDS ORDERED: DexAMETHasone 4 MG TAB PO ONE (13:00)
--- NOTE | 2020-09-24 13:36 | NUR ---
REPORT GIVEN TO PATRICE RN, PATIENT TO GO TO ROOM 239. TELE BOX 22
--- NOTE | 2020-09-24 14:30 | NUR ---
PATIENT TAKEN TO ROOM 239 VIA WHEELCHAIR CONNECTED TO TELEMETRY BOX 22 AND PORTABLE OXYGEN. NURSE FROM COVID UNIT IN ROOM WHEN PATIENT ARRIVED. PATRICE HAIR RN MADE AWARE OF PATIENT ARRIVAL. CALL [place] IN REACH, BED IN LOW POSITION. PATIENT INFORMED TO CALL FOR ASSISTANCE.
[2020-09-24] MEDS ORDERED: REMDESIVIR 200 MG in NS 210ml LOADING DOSE ADULT IV ONE (17:00)
[2020-09-24] MEDS: HYDROcodone-ACET 7.5/325MG TAB PO PRN (18:23)
--- NOTE | 2020-09-24 21:00 | NUR ---
REMDESIVIR INFUSION ENDED REMDESIVIR INFUSION ENDED AT THIS TIME. PT TOLERATED WELL, NO NAUSEA/VOMIT/FEVER/CHILLS REPORTED. VS-B/P-135/86,HR-98, RR18,O2-92,T-99.1
--- NOTE | 2020-09-24 21:11 | NUR ---
ASSESSED PT @ THIS TIME FOR SCHEDULED MDI TX. PT STATES SHE WAS BROUGHT UP FROM ICU BUT INHALERS ARE NOT @ BEDSIDE. NO DISTRESS NOTED @ THIS TIME. CURRENTLY ON R/A SPO2 91%, HR 99 AND RR 16.
[2020-09-25] MEDS: GEMFIBROZIL 600 MG TAB PO SCH ×4 (00:02→22:00)
[2020-09-25] MEDS: DOXYCYCLINE 100 MG TAB/CAP PO SCH (00:03)
[2020-09-25] MEDS: METOPROLOL TARTRATE 50 MG TAB PO SCH ×3 (00:03→23:36)
[2020-09-25] MEDS: MORPHINE SULF INJ 2 MG/ML SYRINGE 1ML IV PRN (00:04)
[2020-09-25] MEDS: PROMETHAZINE HCL 25 MG/ML 1ML IV PRN ×2 (00:17→11:31)
[2020-09-25 05:00] VITALS: BP 152/88
[2020-09-25] MEDS: ALBUTEROL SULF HFA 90MCG INH 200DOSE IN SCH ×3 (05:56→21:29)
[2020-09-25] MEDS: ACETAMINOPHEN 500 MG TAB PO PRN ×2 (06:02→23:37)
[2020-09-25] MEDS: cloNIDine HCL 0.1 MG TAB PO PRN (06:02)
--- NOTE | 2020-09-25 06:58 | NUR ---
END OF SHIFT NOTE WILL ENDORSE CARE TO DAY SHIFT RN, PT A0X4, NO S/S OF DISTRESS OR SOB
[2020-09-25 07:32] LABS: Basophils # (auto) 0 10 ^3/uL (0-0.2); Eosinophils # (auto) 0 10 ^3/uL (0-0.8); Lymphocytes # (auto) 0.5 10 ^3/uL (0.4-5.4); Lymphocytes % (auto) 10.8 % (10.0-50.0); Monocytes # (auto) 0.2 10 ^3/uL (0-1.3); Neutrophils # (auto) 3.8 10 ^3/uL (1.6-8.6); Platelet Count (auto) 213 10^3/uL (140-450); Red Cell Distribution Width 15.8 % (11.8-14.3); White Blood Cell 4.5 10^3/uL (4.4-10.8)
[2020-09-25 07:34] LABS: Basophils % (auto) 0.3 % (0.0-2.0); Hemoglobin 11.8 g/dL (12.2-16.2); Mean Corpuscular Hgb Conc. 31.9 g/dL (32.0-36.0); Mean Corpuscular Volume 78.2 fL (80.0-100.0); Monocytes % (auto) 4.5 % (0.0-12.0); Neutrophils % (auto) 84.4 % (37.0-80.0); Red Blood Cells 4.73 10^6/uL (4.0-5.20)
[2020-09-25 07:46] LABS: Albumin 3.7 g/dL (3.4-5.0); BUN/Creatinine Ratio 18.6; Calcium 9.1 mg/dL (8.5-10.1); Potassium 4.4 mmol/L (3.5-5.1)
[2020-09-25 07:49] LABS: Bilirubin, Total 0.2 mg/dL (0.2-1.0); Total Protein 8.1 g/dL (6.4-8.2)
[2020-09-25 08:43] VITALS: BP 146/84
[2020-09-25 09:18] VITALS: BP 146/84
[2020-09-25] MEDS: FAMOTIDINE 20 MG TAB PO SCH ×2 (10:00→11:06)
[2020-09-25] MEDS: ENOXAPARIN SOD 30 MG/0.3 ML SYRINGE SC SCH ×2 (10:00→11:07)
[2020-09-25] MEDS: AMOXICILLIN/CLAVUL 875 MG TAB PO SCH ×2 (11:04→23:35)
[2020-09-25] MEDS: ZINC SULFATE 220mg CAP or TAB PO SCH (11:04)
[2020-09-25] MEDS: DexAMETHasone 4 MG TAB PO SCH (11:05)
[2020-09-25] MEDS: ASPirin-EC 81 mg tab PO SCH (11:05)
[2020-09-25] MEDS: CHOLECALCIFEROL (VITD3) 2,000 UNIT CAP PO SCH (11:06)
[2020-09-25] MEDS: ASCORBIC ACID 1,000 MG TAB PO SCH (11:06)
[2020-09-25] MEDS: LIDOCAINE 5% TOPICAL PATCH TOP SCH (11:07)
--- NOTE | 2020-09-25 12:00 | NUR ---
Nutrition Assessment Note please see attached link for complete assessment [employer] needs ABW 63 [id number] kcals (23-25kcal/kgABW), Est Protein needs: 50-63 gms/day (0.8-1.0 gm/kgABW r/t elev RFT ckd). Will continue to monitor and reassess prn. Addendum: 09/25/20 at [address] Amended: Links added.
--- NOTE | 2020-09-25 12:22 | NUR ---
MD AWARE PATIENT IS REFUSING LOVENOX, PEPCID AND LOPID. PATIENT WAS EDUCATED ON RISK FOR DVT WHILE HOSPITALIZED AND ESPECIALLY INCREASED RISK FOR CLOTTING WITH COVID-19. PATIENT VERBALIZED UNDERSTANDING BUT STILL REFUSED LOVENOX.
[2020-09-25 13:00] VITALS: BP 114/76
--- NOTE | 2020-09-25 15:20 | NUR ---
Assessment Patient is a 55 year old female, who is alert and oriented. Patient cognitive abilities are intact. Patient states that she can do all ADL's and ambulate independently with a walker. Patient states that she is unemployed and receives [employer] benefits as income. Patient states that she lives with her mother and son Carlos Alberto. Patient states that she will return home post discharge. Patient states that her mother and son is her support system. Patient was not receptive to receive Advance Directive forms. Discharge planning: Patient will return home post discharge and follow up with her PCP post discharge. Patient has no post discharge needs to identify at this moment. Addendum: 09/25/20 at 1524 by SAMMIE HILL Amended: Links added.
[2020-09-25 16:48] VITALS: BP 121/79
[2020-09-25] MEDS: REMDESIVIR 100mg in NS 230ml DAILYx4DAYS (NO VENT) IV SCH (17:56)
[2020-09-25 22:00] VITALS: BP 144/85
[2020-09-25] MEDS: HYDROcodone-ACET 7.5/325MG TAB PO PRN (23:37)
[2020-09-26] MEDS: MORPHINE SULF INJ 2 MG/ML SYRINGE 1ML IV PRN (01:15)
[2020-09-26 05:00] VITALS: BP 145/77
[2020-09-26] MEDS: ALBUTEROL SULF HFA 90MCG INH 200DOSE IN SCH ×3 (06:29→21:35)
--- NOTE | 2020-09-26 06:33 | NUR ---
END OF SHIFT NOTE WILL ENDORSE CARE TO DAY SHIFT RN, PT A0X4, NO S/S OF DISTRESS OR SOB
[2020-09-26 07:21] LABS: Calcium 8.9 mg/dL (8.5-10.1); Potassium 4.2 mmol/L (3.5-5.1)
[2020-09-26 07:27] LABS: BUN/Creatinine Ratio 27.6
[2020-09-26 08:58] VITALS: BP 148/85
[2020-09-26] MEDS: LIDOCAINE 5% TOPICAL PATCH TOP SCH (10:04)
[2020-09-26] MEDS: ASPirin-EC 81 mg tab PO SCH (10:04)
[2020-09-26] MEDS: CHOLECALCIFEROL (VITD3) 2,000 UNIT CAP PO SCH (10:04)
[2020-09-26] MEDS: ZINC SULFATE 220mg CAP or TAB PO SCH (10:04)
[2020-09-26] MEDS: ASCORBIC ACID 1,000 MG TAB PO SCH (10:04)
[2020-09-26] MEDS: FAMOTIDINE 20 MG TAB PO SCH (10:04)
[2020-09-26] MEDS: AMOXICILLIN/CLAVUL 875 MG TAB PO SCH ×2 (10:04→21:51)
[2020-09-26] MEDS: GEMFIBROZIL 600 MG TAB PO SCH ×2 (10:04→10:13)
[2020-09-26] MEDS: DexAMETHasone 4 MG TAB PO SCH (10:05)
[2020-09-26] MEDS: ENOXAPARIN SOD 30 MG/0.3 ML SYRINGE SC SCH ×2 (10:05→10:14)
[2020-09-26] MEDS: METOPROLOL TARTRATE 50 MG TAB PO SCH ×2 (10:05→21:59)
[2020-09-26 12:55] VITALS: BP 145/86
[2020-09-26 16:36] VITALS: BP 130/83
[2020-09-26] MEDS: REMDESIVIR 100mg in NS 230ml DAILYx4DAYS (NO VENT) IV SCH (17:01)
[2020-09-26] MEDS: PROMETHAZINE HCL 25 MG/ML 1ML IV PRN (17:02)
[2020-09-26] MEDS: HYDROcodone-ACET 7.5/325MG TAB PO PRN (17:02)
--- NOTE | 2020-09-26 20:00 | NUR ---
Opening Shift Note Assumed care of patient, awake and alert x4. Patient denies pain or shortness of breath at this time. No sign/symptoms of distress noted or verbalized at this time. Instructed on plan of care and encouraged patient to call for assistance as needed, patient verbalized understanding. Bed is locked in lowest position, side rails x 2 are up, and call light is within reach.
[2020-09-26 22:00] VITALS: BP 124/73
[2020-09-27 05:00] VITALS: BP 162/99
[2020-09-27] MEDS: cloNIDine HCL 0.1 MG TAB PO PRN ×2 (05:11→13:51)
[2020-09-27] MEDS: ALBUTEROL SULF HFA 90MCG INH 200DOSE IN SCH ×3 (06:03→21:13)
--- NOTE | 2020-09-27 06:15 | NUR ---
IV Insertion IV access obtained, via clean sterile technique by inserting 22 gauge catheter at right forearm after 1 attempts. IV secured properly. No trauma to site. Patient tolerated well. IV Removal IV to right forearm DC'd due to IV being in place for greater than 3 days. IV DC'd with clean sterile technique, catheter fully intact. Pressure dressing applied to site. Patient tolerated well.
[2020-09-27] MEDS: ACETAMINOPHEN 500 MG TAB PO PRN (06:54)
[2020-09-27 08:01] LABS: Potassium 4.1 mmol/L (3.5-5.1)
[2020-09-27 08:10] LABS: Albumin 3.2 g/dL (3.4-5.0); BUN/Creatinine Ratio 28.9; Calcium 8.5 mg/dL (8.5-10.1)
[2020-09-27 08:13] LABS: Bilirubin, Total 0.2 mg/dL (0.2-1.0); Total Protein 7.3 g/dL (6.4-8.2)
[2020-09-27 09:00] VITALS: BP 147/95
[2020-09-27] MEDS: AMOXICILLIN/CLAVUL 875 MG TAB PO SCH ×2 (09:51→21:42)
[2020-09-27] MEDS: ZINC SULFATE 220mg CAP or TAB PO SCH (09:51)
[2020-09-27] MEDS: CHOLECALCIFEROL (VITD3) 2,000 UNIT CAP PO SCH (09:52)
[2020-09-27] MEDS: DexAMETHasone 4 MG TAB PO SCH (09:52)
[2020-09-27] MEDS: GEMFIBROZIL 600 MG TAB PO SCH ×2 (09:52→21:51)
[2020-09-27] MEDS: LIDOCAINE 5% TOPICAL PATCH TOP SCH (09:52)
[2020-09-27] MEDS: ASPirin-EC 81 mg tab PO SCH (09:52)
[2020-09-27] MEDS: ASCORBIC ACID 1,000 MG TAB PO SCH (09:53)
[2020-09-27] MEDS: FAMOTIDINE 20 MG TAB PO SCH (09:53)
[2020-09-27] MEDS: METOPROLOL TARTRATE 50 MG TAB PO SCH ×2 (09:53→21:43)
[2020-09-27 13:00] VITALS: BP 167/100
[2020-09-27] MEDS: ALPRAZolam 0.5 MG TAB PO PRN (13:50)
[2020-09-27 17:00] VITALS: BP 158/85
--- NOTE | 2020-09-27 17:00 | NUR ---
REMDESIVIR STARTED BP 158/85
[2020-09-27] MEDS: REMDESIVIR 100mg in NS 230ml DAILYx4DAYS (NO VENT) IV SCH (17:16)
--- NOTE | 2020-09-27 17:20 | NUR ---
REQUESTED MEDICATION TO BE STOPPED SHE SAID SHE FEELS VERY ANXIOUS. BP 156/85
[2020-09-27] MEDS: PROMETHAZINE HCL 25 MG/ML 1ML IV PRN (17:39)
[2020-09-27] MEDS: HYDROcodone-ACET 7.5/325MG TAB PO PRN (17:40)
--- NOTE | 2020-09-27 17:40 | NUR ---
ASKED FOR PHENERGAN AND NORCO. SHE SAID SHE FEELS A LITTLE NAUSEATED AND HEADACHE.
--- NOTE | 2020-09-27 18:00 | NUR ---
ASKED PATIENT IF I COULD RESUME REMDESIVIR AT THIS TIME. SHE SAID NO SHE WANTS TO WAIT A LITTLE LONGER. SHE IS EATING DINNER NO SIGNS OF DISTRESS.
--- NOTE | 2020-09-27 20:30 | NUR ---
Remdesivir Infusion Complete Remdesivir infusion completed at this time. Post infusion vital signs: BP: 154/102, HR: 63, RR: 18, TEMP: 98.1, SPO2: 92% on room air. No sign/symptoms of distress noted or verbalized at this time. No side effects reported during the infusion or at this time.
[2020-09-27 22:00] VITALS: BP 134/82
--- NOTE | 2020-09-27 22:15 | NUR ---
Patient Refused Lopid Patient refused scheduled Lopid. Patient educated on the benefits and side effects. Patient still refused scheduled Lopid. KAYLYN Martinez made aware.
[2020-09-28] MEDS: cloNIDine HCL 0.1 MG TAB PO PRN (05:34)
[2020-09-28 06:00] VITALS: BP 185/99
[2020-09-28] MEDS: ALBUTEROL SULF HFA 90MCG INH 200DOSE IN SCH ×3 (06:33→21:12)
[2020-09-28 06:41] LABS: Potassium 4.2 mmol/L (3.5-5.1)
[2020-09-28 07:14] LABS: BUN/Creatinine Ratio 25.2; Bilirubin, Total 0.3 mg/dL (0.2-1.0); Calcium 8.2 mg/dL (8.5-10.1); Total Protein 7.1 g/dL (6.4-8.2)
[2020-09-28 07:36] LABS: Sodium 137 mmol/L (136-145)
[2020-09-28 07:37] LABS: Anion Gap 7 (5-15); BUN/Creatinine Ratio 25.2; Blood Urea Nitrogen 27 mg/dL (7-18); Calcium 8.2 mg/dL (8.5-10.1); Carbon Dioxide 24 mmol/L (21-32); Chloride 106 mmol/L (98-107); GFR African American 68 mL/min; GFR Non-African American 56 mL/min; Glucose 83 mg/dL (74-106); Potassium 4.2 mmol/L (3.5-5.1)
[2020-09-28 07:53] LABS: Magnesium 2.6 mg/dL (1.6-2.6)
[2020-09-28 09:09] VITALS: BP 150/106
[2020-09-28] MEDS: GEMFIBROZIL 600 MG TAB PO SCH ×2 (10:00→21:54)
[2020-09-28] MEDS: ENOXAPARIN SOD 30 MG/0.3 ML SYRINGE SC SCH (10:00)
[2020-09-28] MEDS: METOPROLOL TARTRATE 50 MG TAB PO SCH ×2 (11:02→21:48)
[2020-09-28] MEDS: ASPirin-EC 81 mg tab PO SCH (11:02)
[2020-09-28] MEDS: ZINC SULFATE 220mg CAP or TAB PO SCH (11:03)
[2020-09-28] MEDS: AMOXICILLIN/CLAVUL 875 MG TAB PO SCH ×2 (11:03→21:48)
[2020-09-28] MEDS: ASCORBIC ACID 1,000 MG TAB PO SCH (11:03)
[2020-09-28] MEDS: FAMOTIDINE 20 MG TAB PO SCH (11:03)
[2020-09-28] MEDS: DexAMETHasone 4 MG TAB PO SCH (11:04)
[2020-09-28] MEDS: LIDOCAINE 5% TOPICAL PATCH TOP SCH (11:05)
[2020-09-28] MEDS: CHOLECALCIFEROL (VITD3) 2,000 UNIT CAP PO SCH (11:35)
--- NOTE | 2020-09-28 11:47 | NUR ---
Nutrition Followup Note Wt 72kg Pt is covid positive in covid isolation. Pt is with a Cardiac 2g Na diet with a good appetite aeb pt has a 75% avg po intake x 2 days per RN nutrition note. Est Energy needs ABW 63 [id number] kcals (23-25kcal/kgABW), Est Protein needs: 50-63 gms/day (0.8-1.0 gm/kgABW r/t elev RFT ckd). Will continue to monitor and reassess prn. Labs: BUN 27H, Creat 1.07H, Alb 3.0L, ca 8.2L BM: Pt with no BM noted per Rn note Skin: BS 20 low risk, full details in health care facilities inspector note PES: Altered nutrition related lab values r.t current chronic medical condition aeb elev RFT and elev lipids Decreased nutrient needs r/t adiposity aeb pt`s high BMI of 30.7 kgm2 Comments: 1) consider ensure enlive 1 carton bid if PO becomes low again 2) refer to [facility] on DC 3) continue current plan of care Expected Outcomes/Goals: pt will have improved labs pt will have adequate PO F/u mod 3-5 days
[2020-09-28 12:21] VITALS: BP 150/106
[2020-09-28 13:00] VITALS: BP 138/91
[2020-09-28] MEDS ORDERED: NIFEdipine ER 30 MG TAB PO ONE (14:45)
--- NOTE | 2020-09-28 15:40 | NUR ---
Closing Shift Note Patient care endorsed to Josie MOREL.
[2020-09-28 17:13] VITALS: BP 150/101
[2020-09-28] MEDS: REMDESIVIR 100mg in NS 230ml DAILYx4DAYS (NO VENT) IV SCH (17:50)
--- NOTE | 2020-09-28 17:50 | NUR ---
started Remdesivir infusion Pre BP AND HR: 150/101, 73
--- NOTE | 2020-09-28 18:05 | NUR ---
15 MINUTE REMDESIVIR INFUSION BP AND HR: 163/102, 72
--- NOTE | 2020-09-28 18:50 | NUR ---
POST REMDESIVIR INFUSION BP AND HR: 124/79, 81
--- NOTE | 2020-09-28 19:00 | NUR ---
ENDORSED CARE TO DAY SHIFT ADRIEL POWELL
[2020-09-28 21:00] VITALS: BP 126/93
--- NOTE | 2020-09-28 22:12 | NUR ---
Respiratory note: PT REFUSED NOC CPAP. PT INFORMED TO HAVE RT CALLED IF SHE CHANGES HER MIND THROUGH THE NIGHT.
--- NOTE | 2020-09-28 22:20 | NUR ---
Refused Medication Patient refused gemfibrozil (Lopid) as prescribed. Patient said, "oh I don't take that." I clarified that it is scheduled, patient still refused medication. Patient educated on the medication and refused again.
[2020-09-29 05:00] VITALS: BP 125/74
[2020-09-29] MEDS: ALPRAZolam 0.5 MG TAB PO PRN (06:09)
[2020-09-29] MEDS: ALBUTEROL SULF HFA 90MCG INH 200DOSE IN SCH (07:10)
[2020-09-29 07:42] LABS: BUN/Creatinine Ratio 28.2; Calcium 8.4 mg/dL (8.5-10.1); Potassium 4.1 mmol/L (3.5-5.1)
--- NOTE | 2020-09-29 07:45 | NUR ---
OPENING NOTE ASSUMED CARE OF PT. ALERT AND ORIENTED. NO S/S OF SOB/DISTRESS NOTED. BED SET TO LOWEST POSITION/LOCKED. BEDSIDE RAILS UP X2, CALL LIGHT WITHIN REACH. INSTRUCTED PT TO CALL FOR ASSISTANCE. UPDATED ON POC. PT VERBALIZED UNDERSTANDING. WILL CONTINUE TO MONITOR Q 1HR AND PRN FOR CHANGES.
[2020-09-29] MEDS ORDERED: ZINC220T6 PO (08:41)
[2020-09-29] MEDS ORDERED: DEX4T PO (08:41)
[2020-09-29] MEDS ORDERED: AMOX-277 PO (08:41)
[2020-09-29] MEDS ORDERED: ASCO10003 PO (08:41)
[2020-09-29] MEDS ORDERED: ALBUAER3 IN (08:41)
[2020-09-29] MEDS ORDERED: CHOL1CAP47 PO (08:41)
[2020-09-29] MEDS ORDERED: ASPI81CH43 PO (08:54)
[2020-09-29 09:00] VITALS: BP 129/90
[2020-09-29] MEDS: ENOXAPARIN SOD 30 MG/0.3 ML SYRINGE SC SCH (10:00)
[2020-09-29] MEDS ORDERED: NIFEdipine ER 30 MG TAB PO SCH (10:00)
[2020-09-29] MEDS: GEMFIBROZIL 600 MG TAB PO SCH (10:00)
[2020-09-29] MEDS: ZINC SULFATE 220mg CAP or TAB PO SCH (10:38)
[2020-09-29] MEDS: DexAMETHasone 4 MG TAB PO SCH (10:39)
[2020-09-29] MEDS: AMOXICILLIN/CLAVUL 875 MG TAB PO SCH (10:39)
[2020-09-29] MEDS: ASPirin-EC 81 mg tab PO SCH (10:39)
[2020-09-29] MEDS: METOPROLOL TARTRATE 50 MG TAB PO SCH (10:40)
[2020-09-29] MEDS: FAMOTIDINE 20 MG TAB PO SCH (10:40)
[2020-09-29] MEDS: CHOLECALCIFEROL (VITD3) 2,000 UNIT CAP PO SCH (10:41)
[2020-09-29] MEDS: ASCORBIC ACID 1,000 MG TAB PO SCH (10:41)
[2020-09-29] MEDS: LIDOCAINE 5% TOPICAL PATCH TOP SCH (10:42)
[2020-09-29 12:15] VITALS: BP 129/90
--- NOTE | 2020-09-29 12:20 | NUR ---
Assessment Patient is a 55 year old female, who is alert and oriented. Patient cognitive abilities are intact. Patient states that she can do all ADL's and ambulate independently. Patient states that she lives with her son, patient states that her mother Mandy ([phone]), is her support system. Patient stated that she will return home post discharge. Patient stated that her son will provide transportation post discharge. Patient will return home post discharge. Patient states that she has Advance Directive at home. Discharge planning: Patient will return home post discharge, patient will follow up with PCP post discharge. There are no other discharge planning to address at this moment. Addendum: 09/29/20 at 1224 by SAMMIE BRYANT Amended: Links added.
[2020-09-29 13:00] VITALS: BP 129/92
--- NOTE | 2020-09-29 13:39 | NUR ---
Discharge Discharge instructions given as ordered. Encourage to follow up with PMD as instructed. All questions and concerns addressed. Patient verbalized understanding. IV removed with catheter intact, pressure dressing applied. Telemetry unit returned to ICU.
--- NOTE | 2020-09-29 14:38 | NUR ---
Patient taken to vehicle via wheelchair with all personal belongings, accompanied by staff and family member. No distress noted at time of departure.
== END 2020-09-29 14:36 | disposition home or self-care (01) | DRG 137 ==
LOC: ER 09:16 → TELE 09:17 → ICU WEST 16:19 → TELE-E-ADS 09-24 14:20 → TELE-EAST 09-24 14:54
PROVIDERS: ADMIT Nurse Practitioner Acute Care; ATTEND Internal Medicine
PROC: XW033E5 Introduction of Remdesivir Anti-infective into Peripheral Vein, Percutaneous Approach, New Technology Group 5 (ICD-10-PCS; principal; 2020-09-23)
DX: U07.1 COVID-19 (principal); N17.0 Acute kidney failure with tubular necrosis; J12.89 Other viral pneumonia; J96.00 Acute respiratory failure, unspecified whether with hypoxia or hypercapnia; D68.59 Other primary thrombophilia; G89.29 Other chronic pain; E34.8 Other specified endocrine disorders; Z86.73 Personal history of transient ischemic attack (TIA), and cerebral infarction without residual deficits; E78.5 Hyperlipidemia, unspecified; I16.9 Hypertensive crisis, unspecified; N18.4 Chronic kidney disease, stage 4 (severe); N39.0 Urinary tract infection, site not specified; B95.61 Methicillin susceptible Staphylococcus aureus infection as the cause of diseases classified elsewhere; E11.22 Type 2 diabetes mellitus with diabetic chronic kidney disease; B95.8 Unspecified staphylococcus as the cause of diseases classified elsewhere; E78.1 Pure hyperglyceridemia; F41.9 Anxiety disorder, unspecified; I13.10 Hypertensive heart and chronic kidney disease without heart failure, with stage 1 through stage 4 chronic kidney disease, or unspecified chronic kidney disease; I25.10 Atherosclerotic heart disease of native coronary artery without angina pectoris; J45.909 Unspecified asthma, uncomplicated; Z79.899 Other long term (current) drug therapy; Z82.49 Family history of ischemic heart disease and other diseases of the circulatory system; Z82.5 Family history of asthma and other chronic lower respiratory diseases; Z83.3 Family history of diabetes mellitus; Z90.710 Acquired absence of both cervix and uterus
CPT/HCPCS: 36415; 70450; 71045; 80048; 80053; 80061; 80076; 80307; 81001; 82728; 83605; 83615; 83735; 84443; 84484; 85025; 85379; 86141; 86850; 86900; 86901; 87040; 87081; 87086; 87088; 87186; 87426; 87804; 93005; 94640; G0378; J2405; J3490

== ENCOUNTER 2024-07-14 19:31 | Emergency (ER) | payer MEDICAID ==
[~2024-07-14] VITALS: Ht 154.9 cm; Wt 63.6 kg
[~2024-07-14 19:31] MED LIST changes: +ALBUAER3 IN; -AML5T PO; +AMOX875T4 PO; +ASCO10003 PO; +ASPI81CH43 PO; +CHOL1CAP47 PO; +DEX4T PO; -GEMF600T7 PO; -LISI-646 PO; +METO-158 PO; +NIFE1TAB30 PO; +TERA2CAP79 PO; +ZINC220T6 PO
[2024-07-14] MEDS: ONDANSETRON HCL 4 MG/2 ML VIAL IV ONE (20:05)
[2024-07-14] MEDS: LABETALOL HCL 20 MG/4 ML VL IV ONE ×3 (20:05→22:05)
[2024-07-14 20:14] LABS: Basophils # (auto) 0 10 ^3/uL (0-0.2); Basophils % (auto) 0.3 % (0.0-2.0); Eosinophils # (auto) 0.1 10 ^3/uL (0-0.8); Eosinophils % (auto) 1.4 % (0.0-7.0); Hematocrit 38.1 % (36.0-46.0); Hemoglobin 12.6 g/dL (12.2-16.2); Lymphocytes % (auto) 53.7 % (10.0-50.0); Mean Corpuscular Hemoglobin 25.7 pg (28.0-32.0); Mean Corpuscular Hgb Conc. 33.2 g/dL (32.0-36.0); Mean Corpuscular Volume 77.5 fL (80.0-100.0); Monocytes # (auto) 0.3 10 ^3/uL (0-1.3); Neutrophils % (auto) 40.6 % (37.0-80.0); Nucleated Red Blood Cells % 0.1 %; Platelet Count (auto) 251 10^3/uL (140-450); Red Blood Cells 4.91 10^6/uL (4.0-5.20); Red Cell Distribution Width 15.3 % (11.8-14.3); White Blood Cell 7.4 10^3/uL (4.4-10.8)
[2024-07-14 20:25] LABS: Alanine Aminotransferase 11 U/L (7-40); Albumin 5.1 g/dL (3.2-4.8); Alkaline Phosphatase 100 U/L (46-116); Anion Gap 17 (5-15); Aspartate Aminotransferase 14 U/L (13-40); BUN/Creatinine Ratio 14.3 (10.0-20.0); Bilirubin, Total 0.5 mg/dL (0.2-1.0); Blood Alcohol < 3.0 mg/dL (<10); Blood Urea Nitrogen 37 mg/dL (9-23); Calcium 10.4 mg/dL (8.7-10.4); Carbon Dioxide 17 mmol/L (20-30); Chloride 106 mmol/L (98-107); Glucose 144 mg/dL (74-106); Potassium 3.1 mmol/L (3.5-5.1); Sodium 140 mmol/L (136-145); Total Protein 8.6 g/dL (5.7-8.2)
[2024-07-14] MEDS: LABETALOL INJECTION 250 MG in SODIUM CHL 0.9% 200 ML IV ONE (21:14)
[2024-07-14] MEDS ORDERED: LABETALOL INJECTION 250 MG in SODIUM CHL 0.9% 200 ML IV ONE (21:15)
[2024-07-14] MEDS: DexAMETHasone SOD PHOS 10MG/1ML VIAL INJ IV ONE ×2 (21:15→21:37)
[2024-07-14] MEDS: SODIUM CHLORIDE 0.9% 1,000 ML IV ONE (21:15)
[2024-07-14] MEDS: ESMOLOL HCL-NS 10MG/ML 250 ML IV SCH (21:32)
[2024-07-14 21:56] VITALS: BP 264/148; PULSE 92; RESP 19; TEMP 97.6; O2SAT 100
== END 2024-07-14 22:20 | disposition short-term general hospital (02) ==
LOC: ER 19:31
DX: R41.82 Altered mental status, unspecified (principal); G93.41 Metabolic encephalopathy; I61.9 Nontraumatic intracerebral hemorrhage, unspecified; K57.30 Diverticulosis of large intestine without perforation or abscess without bleeding; I12.0 Hypertensive chronic kidney disease with stage 5 chronic kidney disease or end stage renal disease; N18.6 End stage renal disease; E78.5 Hyperlipidemia, unspecified; Z90.710 Acquired absence of both cervix and uterus; Z86.73 Personal history of transient ischemic attack (TIA), and cerebral infarction without residual deficits; Z88.1 Allergy status to other antibiotic agents; Z88.6 Allergy status to analgesic agent
CPT/HCPCS: 36415; 70450; 71045; 74176; 80053; 80320; 84484; 85025; 93005; 96374; 96375; 96376; 99291; J1100; J2405; J7050